=== PATIENT | male | born 1945 | race Caucasian/White ===

== ENCOUNTER 2017-01-10 05:57 | Day surgery (SDC) | payer MEDICARE, OTHER ==
--- NOTE | 2017-01-08 11:54 | HP ---
CHIEF COMPLAINT: Right wrist numbness. HISTORY OF PRESENT ILLNESS: Mr. Romero is a 70-year-old male with a history of numbness in the right hand. He has also had some pain in the wrist. He has had this going on for a couple of years and now he is having some numbness even at rest. He denies any trauma related to this, denies any neurologic symptoms, and denies any neurologic symptoms proximal to the wrist. We have discussed options for him and given the severity of the symptoms with the current situation being on a continual basis, he has elected surgical intervention. After discussing the risks, benefits and alternatives to that, the patient has given informed consent. PAST SURGICAL HISTORY: 1. Left leg surgery. 2. Sinus surgery. ALLERGIES: NO KNOWN DRUG ALLERGIES. MEDICATIONS: 1. Metformin. 2. Amlodipine. 3. Lisinopril. 4. Bystolic. 5. Atorvastatin. CODE STATUS: Full code. IMMUNIZATIONS: Up to date. SOCIAL HISTORY: The patient does not drink, smoke or use any illicit drugs. FAMILY HISTORY: None pertinent to today's complaint. REVIEW OF SYSTEMS: Negative except as indicated in the History of Present Illness. PHYSICAL EXAMINATION: VITAL SIGNS: Blood pressure 145/87. Pulse 74. Height 5'11". Weight 255. MENTAL STATUS: The patient is awake, alert, and is able to give a good history and participate in the physical. The patient is oriented to person, place and time. SKIN: Normal tone and turgor. MUSCULOSKELETAL: He has positive Tinel's and Phalen's although he does have some subjective decreased sensation. He has no significant thenar atrophy on that side. He has no hypothenar atrophy. He has full range of motion in the shoulder, elbow, wrist and digits. The entire extremity is warm and well perfused. ASSESSMENT: 1. Carpal tunnel syndrome. PLAN: At this point, he has elected surgical intervention. We have discussed the risks, benefits, and alternatives to that and the patient has given informed consent. #[id number] [facility]
[2017-01-10] MEDS ORDERED: LACTATED RINGERS 1,000 ML ONE (06:00)
[2017-01-10] MEDS ORDERED: ceFAZolin SODIUM 1 GM VIAL ONE ×2 (06:00→07:23)
[2017-01-10] MEDS ORDERED: SODIUM CHL 0.9% 100ML MINI-BAG 100 ML IVPB ONE (06:00)
[2017-01-10] MEDS ORDERED: LIDOCAINE 1% 50 ML VIAL INJ ONE (06:25)
[2017-01-10] MEDS ORDERED: BUPIVACAINE 0.25% INJ 30 ML VIAL INJ ONE (06:25)
[2017-01-10] MEDS ORDERED: MIDAZOLAM INJ 5 MG/5 ML VIAL ONE (06:46)
[2017-01-10] MEDS ORDERED: fentaNYL CITRATE INJ 50 MCG/ML AMP ONE (06:47)
[2017-01-10] MEDS ORDERED: VANCOMYCIN HCL INJ 1,000 MG VIAL IVPB ONE (07:23)
[2017-01-10 08:30] VITALS: O2SAT 95
[2017-01-10] MEDS ORDERED: PROPOFOL 200 MG/20 ML VIAL IV ONE (11:00)
[2017-01-10] MEDS ORDERED: LIDOCAINE 1% 10 ML VIAL INJ ONE (11:00)
[2017-01-10 13:02] VITALS: BP 118/69; TEMP 97.6
--- NOTE | 2017-01-15 08:26 | OP ---
DATE OF PROCEDURE: 01/10/17 PREOPERATIVE DIAGNOSIS: 1. Carpal tunnel syndrome. POSTOPERATIVE DIAGNOSIS: 1. Carpal tunnel syndrome. PROCEDURE: 1. Carpal tunnel release. SURGEON: Georgi Dewey MD. STEAM CLEAN MACHINE OPERATOR: Samson Olivas CST, SA-C. ANESTHESIA: Local with sedation. COMPLICATIONS: None. FINDINGS: Thickening of the transverse carpal ligament with narrowing of the median nerve across the carpal tunnel. INDICATION: The patient has a long history of numbness and it has gotten progressively worse to the point where he is having difficulty even at rest. He has attempted and failed conservative measures, and as such has requested operative intervention. After discussing the risks, benefits and alternatives to operative intervention, the patient has given informed consent for carpal tunnel release. PROCEDURE: The patient was brought to the Operating Room and placed in the supine position. Sedation was administered and local anesthetic was injected into the operative area under sterile conditions. After the injection of anesthetic, the arm was sterilely prepped and draped. A longitudinal incision was made directly overlying the transverse carpal ligament and blunt dissection was carried down to the ligament. The transverse carpal ligament was sharply transected along its length and a [place] elevator was used to ensure complete release of the ligament. Once release had been confirmed, the wound was thoroughly irrigated and the wound was closed with Nylon suture. A sterile dressing was placed and the patient was taken to the Day Surgery Unit. POSTOPERATIVE INSTRUCTIONS: The patient has been encouraged to do range of motion of the digits and will followup with us in one week. #[id number] [facility]
== END 2017-01-10 09:20 | disposition home or self-care (01) ==
LOC: AMB 05:57
PROVIDERS: ATTEND Orthopaedic Surgery
DX: G56.02 Carpal tunnel syndrome, left upper limb (principal); E78.00 Pure hypercholesterolemia, unspecified; Z87.891 Personal history of nicotine dependence; Z79.899 Other long term (current) drug therapy
CPT/HCPCS: 01810; 36416; 64721; 82948; 87070; J0690; J2250; J3010; J3370; J3490; J7050; J7120

== ENCOUNTER → 2017-03-01 | Outpatient (CLI) | payer MEDICARE, OTHER ==
--- NOTE | 2017-03-01 17:01 | RAD ---
EXAM DESCRIPTION: Hand,Right 3 Views CLINICAL HISTORY: HAND PAIN COMPARISON: None Available. TECHNIQUE: AP, LATERAL, AND OBLIQUE FINDINGS: Three-view right hand shows no fracture or dislocation. No bone lesion is noted but moderate degenerative changes involving the interphalangeal joints are apparent. The radiocarpal and carpal metacarpal articulations appear satisfactory. A destructive arthropathy or periarticular demineralization pattern is not apparent IMPRESSION: 1. Modest degenerative arthropathy, otherwise negative study. Electronically signed by: Oren Coyle MD 03/01/2017 5:01 PM CDT
== END ==
LOC: RAD 08:03
PROVIDERS: ATTEND Orthopaedic Surgery
DX: M79.641 Pain in right hand (principal); M12.841 Other specific arthropathies, not elsewhere classified, right hand

== ENCOUNTER 2017-04-03 08:00 | Day surgery (SDC) | payer MEDICARE, OTHER ==
--- NOTE | 2017-04-02 08:32 | HP ---
CHIEF COMPLAINT: Right hand numbness. HISTORY OF PRESENT ILLNESS: Ty is a 71-year-old male with a history of numbness in both hands although his left has resolved subsequent to carpal tunnel release. He currently complains of numbness in the right hand that has been present for many months and now is causing him to awaken at night. It also causes numbness during the day. He has requested operative intervention. After discussing the risks, benefits and alternatives to that, the patient has given informed consent. PAST SURGICAL HISTORY: 1. Carpal tunnel release. 2. Sinus surgery. 3. Left leg surgery. MEDICATIONS: 1. Metformin. 2. Amlodipine. 3. Lisinopril. 4. Bystolic. 5. Atorvastatin. ALLERGIES: NO KNOWN DRUG ALLERGIES. CODE STATUS: Full code. IMMUNIZATIONS: Up to date. SOCIAL HISTORY: The patient does not drink, smoke or use any illicit drugs. FAMILY HISTORY: None pertinent to today's complaint. REVIEW OF SYSTEMS: Negative except as indicated in the History of Present Illness. PHYSICAL EXAMINATION: VITAL SIGNS: Blood pressure 130/64. Pulse 98. Height 5'11". Weight 260. MENTAL STATUS: The patient is awake, alert, and is able to give a good history and participate in the physical. The patient is oriented to person, place and time. SKIN: Normal tone and turgor. MUSCULOSKELETAL: He has no significant thenar atrophy. Two point discrimination is intact. He has positive compression test, positive Phalen's and positive Tinel's. Strength is 5/5. He maintains full range of motion in all the digits. There is no crepitus with range of motion. ASSESSMENT: 1. Carpal tunnel syndrome. PLAN: The plan at this point is for carpal tunnel release. We have discussed the risks, benefits, and alternatives to that and the patient has given informed consent. #[id number] [facility]
[~2017-04-03 08:00] MED LIST: BUPIVACAINE 0.25% INJ 30 ML VIAL INJ ONE; LACTATED RINGERS 1,000 ML ONE; LIDOCAINE 1% 50 ML VIAL INJ ONE; SODIUM CHL 0.9% 100ML MINI-BAG 100 ML IVPB ONE; ceFAZolin SODIUM 1 GM VIAL ONE
[2017-04-03] MEDS: VANCOMYCIN HCL INJ 1,000 MG VIAL IVPB ONE ×2 (10:27→10:40)
[2017-04-03] MEDS: ceFAZolin SODIUM 1 GM VIAL ONE ×2 (10:27→10:40)
[2017-04-03 11:47] VITALS: BP 153/86; TEMP 97; O2SAT 96
[2017-04-03] MEDS ORDERED: PROPOFOL 200 MG/20 ML VIAL IV ONE (12:00)
--- NOTE | 2017-04-04 08:50 | OP ---
DATE OF PROCEDURE: 04/03/17 PREOPERATIVE DIAGNOSIS: 1. Carpal tunnel syndrome. POSTOPERATIVE DIAGNOSIS: 1. Carpal tunnel syndrome. PROCEDURE: 1. Carpal tunnel release. SURGEON: Georgi Dewey MD. TOOL CRIB CLERK: Samson Olivas CST, SA-C. ANESTHESIA: Local with sedation. COMPLICATIONS: None. FINDINGS: Thickening of the transverse carpal ligament and narrowing of the median nerve across the carpal tunnel. INDICATION: The patient has a history of carpal tunnel syndrome on both sides. We had previously done contralateral carpal tunnel release and he is requesting carpal tunnel release on this side because of ongoing symptoms. After discussing the risks, benefits and alternatives to that, the patient has given informed consent for carpal tunnel release. PROCEDURE: The patient was brought to the Operating Room and placed in the supine position. Sedation was administered and local anesthetic was injected into the operative area under sterile conditions. After the injection of anesthetic, the arm was sterilely prepped and draped. A longitudinal incision was made directly overlying the transverse carpal ligament and blunt dissection was carried down to the ligament. The transverse carpal ligament was sharply transected along its length and a [place] elevator was used to ensure complete release of the ligament. Once release had been confirmed, the wound was thoroughly irrigated and the wound was closed with Nylon suture. A sterile dressing was placed and the patient was taken to the Day Surgery Unit. POSTOPERATIVE INSTRUCTIONS: The patient has been encouraged to do range of motion of the digits and will followup with us in two days. #[id number] MTDD
== END 2017-04-03 11:25 | disposition home or self-care (01) ==
LOC: AMB 08:00
PROVIDERS: ATTEND Orthopaedic Surgery
DX: G56.01 Carpal tunnel syndrome, right upper limb (principal); I10 Essential (primary) hypertension; E11.9 Type 2 diabetes mellitus without complications; K21.9 Gastro-esophageal reflux disease without esophagitis; J44.9 Chronic obstructive pulmonary disease, unspecified; E66.9 Obesity, unspecified; Z79.899 Other long term (current) drug therapy
CPT/HCPCS: 01810; 64721; 82948; 87070; J0690; J3370; J3490; J7050; J7120

== ENCOUNTER → 2017-04-25 | Outpatient (CLI) | payer MEDICARE, OTHER | END | disposition home or self-care (01) | LOC: GMAL 14:33 | PROVIDERS: ATTEND Family Medicine | DX: D51.3 Other dietary vitamin B12 deficiency anemia (principal); E55.9 Vitamin D deficiency, unspecified ==

== ENCOUNTER → 2017-05-01 | Outpatient (CLI) | payer MEDICARE, OTHER | END | disposition home or self-care (01) | LOC: GMAL 14:30 | PROVIDERS: ATTEND Family Medicine | DX: D53.9 Nutritional anemia, unspecified (principal) ==

== ENCOUNTER → 2017-05-14 | Outpatient (CLI) | payer MEDICARE, OTHER | END | disposition home or self-care (01) | LOC: GMAL 14:17 | PROVIDERS: ATTEND Family Medicine | DX: R53.1 Weakness (principal) ==

== ENCOUNTER → 2017-08-01 | Outpatient (CLI) | payer MEDICARE, OTHER | END | disposition home or self-care (01) | LOC: GMAL 10:40 | PROVIDERS: ATTEND Family Medicine | DX: D53.9 Nutritional anemia, unspecified (principal) ==

== ENCOUNTER → 2017-12-06 | Outpatient (CLI) | payer MEDICARE, OTHER | END | disposition home or self-care (01) | LOC: GMAL 14:17 | PROVIDERS: ATTEND Family Medicine | DX: D50.9 Iron deficiency anemia, unspecified (principal) ==

== ENCOUNTER → 2018-01-14 | Outpatient (CLI) | payer OTHER | LOC: GMAL 10:22 | PROVIDERS: ATTEND Family Medicine | DX: E55.9 Vitamin D deficiency, unspecified (principal) ==

== ENCOUNTER → 2018-04-11 | Outpatient (CLI) | payer OTHER ==
--- NOTE | 2018-04-11 17:02 | RAD ---
EXAM DESCRIPTION: Fingers,Left CLINICAL HISTORY: 72 years Male, PAIN IN LEFT FINGERS (RING FINGER) COMPARISON: None TECHNIQUE: Left index finger three x-ray views FINDINGS: No fracture. No dislocation. Normal bony mineralization. No radiopaque foreign body. Degenerative changes are seen at the DIP and PIP joints. Tiny linear ossific density dorsal to the head of the proximal phalanx is seen just proximal to the PIP joint. Overlying soft tissue swelling is not prominent and therefore an acute avulsion injury is not thought likely. Clinical correlation recommended however. Other fingers show narrowing of the DIP joints and PIP joints with narrowing of the interphalangeal joint of the thumb. Advanced osteoarthritic changes of the lateral carpus are noted especially first carpal metacarpal joint. There is mild degenerative narrowing of the radiocarpal joint. IMPRESSION: Negative for fracture. Degenerative changes as described. Electronically signed by: Willian Olson MD 04/11/2018 5:00 PM CDT
--- NOTE | 2018-04-12 09:00 | RAD ---
EXAM DESCRIPTION: Hand,Left 3 Views CLINICAL HISTORY: PAIN IN LEFT HAND COMPARISON: None Available. TECHNIQUE: AP, LATERAL, AND OBLIQUE FINDINGS: Three-view left hand shows no fracture or dislocation. There is no lytic bone lesion. Extensive arthritic changes are noted with narrowing of the DIP more than PIP joints. Degenerative changes of the interphalangeal joint of the thumb and first metacarpal phalangeal joint. Advanced degenerative changes of the lateral carpus are noted especially first carpal metacarpal joint. There is no radiopaque foreign body. IMPRESSION: Negative for fracture. Electronically signed by: Willian Olson MD 04/12/2018 8:59 AM CDT
== END ==
LOC: RAD 08:01
PROVIDERS: ATTEND Orthopaedic Surgery
DX: M79.642 Pain in left hand (principal); M79.645 Pain in left finger(s)

== ENCOUNTER → 2018-05-31 | Outpatient (CLI) | payer OTHER | LOC: GMAL 10:49 | PROVIDERS: ATTEND Family Medicine | DX: D50.9 Iron deficiency anemia, unspecified (principal); D53.9 Nutritional anemia, unspecified; Z12.5 Encounter for screening for malignant neoplasm of prostate | CPT/HCPCS: 82607; 82728; 83540; 83550; G0103 ==

== ENCOUNTER → 2018-10-16 | Outpatient (CLI) | payer OTHER | LOC: GMAL 14:32 | PROVIDERS: ATTEND Family Medicine | DX: D50.9 Iron deficiency anemia, unspecified (principal) ==

== ENCOUNTER → 2018-12-03 | Outpatient (CLI) | payer OTHER | LOC: GMAL 10:50 | PROVIDERS: ATTEND Family Medicine | DX: E55.9 Vitamin D deficiency, unspecified (principal) ==

== ENCOUNTER 2018-12-18 05:42 | Day surgery (SDC) | payer OTHER ==
[2018-12-18] MEDS ORDERED: LACTATED RINGERS 1,000 ML ONE (08:13)
[2018-12-18] MEDS ORDERED: LIDOCAINE 1% 10 ML VIAL INJ ONE (10:00)
[2018-12-18] MEDS ORDERED: PROPOFOL 200 MG/20 ML VIAL IV ONE (10:00)
--- NOTE | 2018-12-18 13:32 | OP ---
DATE OF PROCEDURE: 12/18/18 PREPROCEDURE DIAGNOSIS: 1. Colorectal cancer screening. POSTPROCEDURE DIAGNOSIS: 1. Colonic polyp. 2. Large internal hemorrhoids. 3. Moderate to severe diverticulosis. 4. Tortuous colon. PROCEDURE: 1. Colonoscopy. SURGEON: Homero Marroquin MD COMPLICATIONS: No immediate complications. SEDATION: The patient was sedated via IV propofol by the Anesthesia Department. CONSENT: Prior to the procedure, risks, benefits and alternatives to the therapy were discussed with the patient. The risks included bleeding, infection, perforation and . The patient agreed to the procedure and signed a consent. PREPROCEDURE ANESTHESIA ASSESSMENT: An examination revealed no contraindication to sedation. Airway examination demonstrated a Mallampati class type 2, ASA grade assessment type 2. Throughout the procedure, the patient's blood pressure and additional vital signs were closely monitored. PROCEDURE: The patient was placed in the left lateral decubitus position and a rectal examination was performed. The rectal examination was within normal limits. The Olympus colonoscope was passed in the anus, rectum, traversing the colon to the level of the cecum as identified by the appendiceal orifice and the ileocecal valve. The scope was retracted and the mucosa was visualized. The entirety of the exam was performed under direct visualization. Retroflexion was performed in the rectum. Preparation quality was good. The withdrawal time was greater than 6 minutes. The patient tolerated the procedure well. FINDINGS: 1. A sessile polyp measuring 10 mm was found in the ascending colon. This was resected with cold snare, but not retrieved. 2. Moderate to severe diverticulosis was found in the sigmoid and descending colon. Associated erythema to diverticular opening was found in the sigmoid colon. 3. Large, non-bleeding internal hemorrhoids were found on retroflexion. 4. Tortuous colon. RECOMMENDATION: 1. Return the patient home. 2. Resume previous diet. 3. Repeat colonoscopy in the next 3 years. 4. Resume anticoagulant agent tomorrow. 5. Findings were discussed with the patient and family members. 6. Followup in my office pmaribell #[id number] MTDJacqui
[2018-12-18 13:33] VITALS: BP 131/68; TEMP 97.9; O2SAT 98
== END 2018-12-18 13:25 | disposition home or self-care (01) ==
LOC: AMB 05:42
PROVIDERS: ATTEND Internal Medicine Gastroenterology
DX: Z12.11 Encounter for screening for malignant neoplasm of colon (principal); D12.2 Benign neoplasm of ascending colon; K57.30 Diverticulosis of large intestine without perforation or abscess without bleeding; K64.8 Other hemorrhoids; Q43.8 Other specified congenital malformations of intestine; I10 Essential (primary) hypertension; E11.9 Type 2 diabetes mellitus without complications; E66.9 Obesity, unspecified; G47.30 Sleep apnea, unspecified; Z79.01 Long term (current) use of anticoagulants; Z79.899 Other long term (current) drug therapy
CPT/HCPCS: 00812; 36416; 45385; 82948; J3490; J7120

== ENCOUNTER → 2019-01-12 | Outpatient (CLI) | payer OTHER | LOC: SL 19:03 | PROVIDERS: ATTEND Family Medicine | DX: G47.33 Obstructive sleep apnea (adult) (pediatric) (principal) ==

== ENCOUNTER → 2019-01-13 | Outpatient (CLI) | payer OTHER | LOC: GMAL 10:44 | PROVIDERS: ATTEND Family Medicine | DX: D47.3 Essential (hemorrhagic) thrombocythemia (principal) ==

== ENCOUNTER → 2019-02-14 | Outpatient (CLI) | payer OTHER | LOC: GMAL 11:33 | PROVIDERS: ATTEND Family Medicine | DX: D50.8 Other iron deficiency anemias (principal) ==

== ENCOUNTER → 2019-06-11 | Outpatient (CLI) | payer OTHER | LOC: GMAL 10:28 | PROVIDERS: ATTEND Family Medicine | DX: D50.8 Other iron deficiency anemias (principal) ==

== ENCOUNTER → 2019-06-19 | Outpatient (CLI) | payer OTHER | LOC: LAB.O 10:50 | PROVIDERS: ATTEND Family Medicine | DX: L03.115 Cellulitis of right lower limb (principal) ==

== ENCOUNTER → 2019-06-24 | Outpatient (CLI) | payer OTHER ==
--- NOTE | 2019-06-24 16:43 | US ---
EXAM DESCRIPTION: Venous Doppler sonogram,Lower Extremity RT CLINICAL HISTORY: CELLULITIS COMPARISON: None Available. TECHNIQUE: Right lower extremity venous duplex with grayscale and color Doppler images evaluated FINDINGS: Doppler evaluation of the right lower extremity deep veins was performed. Normal color flow is seen in the common femoral, superficial femoral, profunda femoral and greater saphenous veins. Normal flow is seen in the popliteal vein and veins below the knee in the calf. Normal venous compressibility and flow augmentation. Prominent node in the right groin appears benign. Edema in the subcutaneous fatty tissues of the right lower leg. IMPRESSION: Negative for evidence of deep venous thrombosis on right lower extremity venous Doppler sonogram. Electronically signed by: Willian Olson MD 06/24/2019 4:41 PM CDT
== END ==
LOC: LAB.O 11:56
PROVIDERS: ATTEND Family Medicine
DX: I80.201 Phlebitis and thrombophlebitis of unspecified deep vessels of right lower extremity (principal); L03.90 Cellulitis, unspecified

== ENCOUNTER → 2019-07-04 | Outpatient (CLI) | payer OTHER | LOC: GMAL 11:14 | PROVIDERS: ATTEND Family Medicine | DX: L03.115 Cellulitis of right lower limb (principal) ==

== ENCOUNTER → 2019-07-09 | Outpatient (CLI) | payer OTHER | LOC: GMAL 18:41 | PROVIDERS: ATTEND Family Medicine | DX: L03.115 Cellulitis of right lower limb (principal) ==

== ENCOUNTER → 2019-07-14 | Outpatient (CLI) | payer OTHER | LOC: GMAL 14:18 | PROVIDERS: ATTEND Family Medicine | DX: L03.115 Cellulitis of right lower limb (principal) ==

== ENCOUNTER → 2019-07-22 | Outpatient (CLI) | payer OTHER | LOC: GMAL 10:35 | PROVIDERS: ATTEND Family Medicine | DX: D50.8 Other iron deficiency anemias (principal); I10 Essential (primary) hypertension; R73.9 Hyperglycemia, unspecified; E78.49 Other hyperlipidemia ==

== ENCOUNTER → 2019-12-09 | Outpatient (CLI) | payer OTHER | LOC: GMAL 10:23 | PROVIDERS: ATTEND Family Medicine | DX: D51.3 Other dietary vitamin B12 deficiency anemia (principal); R53.83 Other fatigue; E55.9 Vitamin D deficiency, unspecified; I10 Essential (primary) hypertension; R94.5 Abnormal results of liver function studies; E78.49 Other hyperlipidemia; Z12.5 Encounter for screening for malignant neoplasm of prostate ==

== ENCOUNTER → 2019-12-19 | Outpatient (CLI) | payer OTHER ==
--- NOTE | 2019-12-19 11:46 | RAD ---
EXAM DESCRIPTION: Right shoulder, 4 radiographs CLINICAL HISTORY: PAIN IN RIGHT SHOULDER FINDINGS/ IMPRESSION: Moderate acromioclavicular osteoarthritis. No separation No advanced glenohumeral arthrosis or focal osteochondral lesion. Marrow subacromial space with inferolateral acromial spur No fracture. No lytic or blastic bony lesion Electronically signed by: Oren Montalvo MD 12/19/2019 11:44 AM [facility]
== END ==
LOC: RAD 09:29
PROVIDERS: ATTEND Orthopaedic Surgery
DX: M19.011 Primary osteoarthritis, right shoulder (principal)

== ENCOUNTER → 2019-12-30 | Outpatient (CLI) | payer OTHER ==
--- NOTE | 2019-12-30 17:03 | MRI ---
Study: MRI of the Right Shoulder. Indication: ROTATOR CUFF SYNDROME Technique: Multiplanar, multi sequence MRI of the right shoulder was obtained without intravenous contrast. Comparison: None. Findings: Severe hypertrophic AC joint osteoarthritis with small joint effusion. Type I acromion. Superior migration of the humeral head with narrowing the subacromial space to 2 mm. Full-thickness, fullwidth retracted supraspinatus and infraspinatus tendon tearing with torn tendon fibers at the level of the medial third humeral head. Subscapularis tendinosis with high-grade articular tearing superiorly. Teres minor tendon intact. Mild to moderate atrophy and grade 2 fatty infiltration rotator cuff musculature, most pronounced at the supraspinatus and infraspinatus muscle bellies. Long head biceps tendon torn and distally retracted. Circumferential labral truncation and degeneration. Grade 4 chondrosis and subchondral cystic change superior glenoid rim with additional areas of grade 2 and 3 chondral loss of the joint. Moderate-sized joint effusion. No acute fracture. Impression: Retracted full-thickness, fullwidth supraspinatus and infraspinatus tendon tearing. High-grade articular tearing superior subscapularis tendon. Mild to moderate atrophy and grade 2 fatty infiltration rotator cuff musculature. Long head biceps tendon torn and distally retracted. Circumferential labral truncation and degeneration. Mild to moderate glenohumeral joint osteoarthritis with a moderate size joint effusion. Severe hypertrophic AC joint osteoarthritis. Electronically signed by: Chetan Hopkins MD 12/30/2019 5:01 PM [facility]
== END ==
LOC: MRI 07:50
PROVIDERS: ATTEND Orthopaedic Surgery
DX: M75.101 Unspecified rotator cuff tear or rupture of right shoulder, not specified as traumatic (principal); S46.111A Strain of muscle, fascia and tendon of long head of biceps, right arm, initial encounter; S43.431A Superior glenoid labrum lesion of right shoulder, initial encounter; M62.511 Muscle wasting and atrophy, not elsewhere classified, right shoulder; M19.011 Primary osteoarthritis, right shoulder; M25.411 Effusion, right shoulder

== ENCOUNTER → 2020-07-23 | Outpatient (CLI) | payer OTHER | LOC: GMAL 11:01 | PROVIDERS: ATTEND Family Medicine | DX: D50.8 Other iron deficiency anemias (principal); I10 Essential (primary) hypertension ==